=== PATIENT | female | born 1985 | race Asian ===

== ENCOUNTER 2019-09-16 14:28 | Outpatient (CLI) | payer OTHER ==
--- NOTE | 2019-09-16 15:42 | Ultrasound Report ---
PROCEDURE: OB First Trimester INDICATIONS: ,SPOTTING, HX OF ECTOPIC OUTSIDE/PRIOR DATING DATA: Last menstrual period (LMP): 07/30/2011. LMP-based estimated date of delivery (YULI): 05/05/2020. First dating scan (date and location): 09/16/2019. Estimated date of delivery (YULI) from first dating scan: 05/04/2020. TECHNIQUE: Real-time scanning was performed of the fetus and maternal pelvic organs, with image documentation. COMPARISON: None FINDINGS: Embryo: Single live intrauterine is identified with crown-rump length measuring 0.9 cm cor responds to 7 weeks 0 days. heart rate is identified at 143 bpm. Cervical length is within norm al limits. There is a small focus of subchorionic hemorrhage measuring 1.1 x 1.0 x 0.9 cm. Measurement variability in dating: +/- 4 weeks by LMP, +/- 7 days by mean sac diameter (use before 6 weeks gestation if crown-rump length not able to be measured), +/- 5 days by crown-rump length (6-12 weeks gestation). Maternal organs: Ovaries demonstrate a right corpus luteal cyst.. Limited images through the kidney s demonstrate no hydronephrosis. IMPRESSION: 1. Single live intrauterine with ultrasound gestational age of 7 weeks 0 days corresponds t o ultrasound YULI of 05/04/2020. 2. Small subchorionic hemorrhage. Reviewed by: Marcie Pruitt MD on 09/16/2019 3:41 PM PDT Approved by: Marcie Pruitt MD on 09/16/2019 3:41 PM PDT Station ID: [id number]
== END 2019-09-16 14:29 | disposition home or self-care (01) ==
LOC: DI 14:28
PROVIDERS: ATTEND Nurse Practitioner Family
DX: O26.851 Spotting complicating pregnancy, first trimester (principal); O09.11 Supervision of pregnancy with history of ectopic pregnancy, first trimester; Z3A.01 Less than 8 weeks gestation of pregnancy
CPT/HCPCS: 76801; 76817

== ENCOUNTER 2019-10-12 07:00 | Outpatient (CLI) | payer OTHER ==
[2019-10-12 16:10] LABS: BILIRUBIN,URINE NEGATIVE (NEGATIVE); GLUCOSE, URINE (UA) NEGATIVE (NEGATIVE); KETONES,URINE (UA) NEGATIVE (NEGATIVE); LEUKOCYTE ESTERASE, URINE NEGATIVE (NEGATIVE); NITRITE,URINE NEGATIVE (NEGATIVE); OCCULT BLOOD,URINE NEGATIVE (NEGATIVE); PH,URINE 6.5 PH (5.0-7.5); PROTEIN,URINE NEGATIVE (NEGATIVE); UROBILINOGEN,URINE 0.2 (NORMAL) E.U./dL (NORMAL)
[2019-10-12 16:37] LABS: BACTERIA,URINE None Seen /HPF (None Seen); CLARITY,URINE CLEAR (CLEAR); MUCUS,URINE Few Strands; RBC,URINE None Seen /HPF (0-5); SQUAMOUS EPITHELIAL CELL,UR MANY Squamous (<= Few)
== END 2019-10-12 23:59 | disposition home or self-care (01) ==
LOC: LAB.R 07:00
PROVIDERS: ATTEND Obstetrics & Gynecology
DX: Z36.89 Encounter for other specified antenatal screening (principal)
CPT/HCPCS: 81001; 87086

== ENCOUNTER 2019-10-22 13:06 | Outpatient (CLI) | payer OTHER ==
--- NOTE | 2019-10-22 16:03 | Ultrasound Report ---
PROCEDURE: OB First Trimester INDICATIONS: SUPERVISION OF ELDERLY MULTIGRAVIDA OUTSIDE/PRIOR DATING DATA: Last menstrual period (LMP): 07/30/2019. LMP-based estimated date of delivery (YULI): 05/05/2020. First dating scan (date and location): 09/16/2019. Estimated date of delivery (YULI) from first dating scan: 05/04/2020. TECHNIQUE: Real-time scanning was performed of the fetus and maternal pelvic organs, with image documentation. COMPARISON: Earlier OB ultrasound 09/16/2019 FINDINGS: See below Embryo: There is a single living intrauterine gestation with crown-rump length 6.1 cm which correlat es with a gestational age estimate of 12 weeks 4 days, +/- 5 days. heart rate of 1 58 bpm is no ash. Measurement variability in dating: +/- 4 weeks by LMP, +/- 7 days by mean sac diameter (use before 6 weeks gestation if crown-rump length not able to be measured), +/- 5 days by crown-rump length (6-12 weeks gestation). Maternal organs: Ovaries normal considering gestational status. Limited images through the kidneys demonstrate no hydronephrosis. IMPRESSION: Single living intrauterine gestation, with delivery date projected to be centered on 05/04/2020. Follo w-up anatomic survey at 20 weeks gestation is recommended. Small subchorionic hemorrhage previo usly seen is no longer identified. Reviewed by: Dominic Dimas MD on 10/22/2019 4:01 PM PDT Approved by: Dominic Dimas MD on 10/22/2019 4:01 PM PDT Station ID: [id number]
== END 2019-10-22 13:07 | disposition home or self-care (01) ==
LOC: DI 13:06
PROVIDERS: ATTEND Obstetrics & Gynecology
DX: O09.521 Supervision of elderly multigravida, first trimester (principal); Z3A.12 12 weeks gestation of pregnancy
CPT/HCPCS: 76801

== ENCOUNTER 2019-12-14 15:03 | Outpatient (CLI) | payer OTHER ==
--- NOTE | 2019-12-15 08:18 | Ultrasound Report ---
PROCEDURE: OB Detailed Eval INDICATIONS: SUPER OF ELDERLY MULTIGRAVIDA OUTSIDE/PRIOR DATING DATA: Last menstrual period (LMP): 07/30/2019. LMP-based estimated date of delivery (YULI): 05/05/2020. First dating scan (date and location): 09/16/2019. Estimated date of delivery (YULI) from first dating scan: 05/04/2020. TECHNIQUE: Real-time scanning was performed of the fetus, with image documentation and biometric measurements. Endovaginal scanning: Not needed. COMPARISON: All prior OB ultrasound studies for this . FINDINGS: General: A single living intrauterine gestation is present. Presentation: Variable at this time Placenta: Placental position is anterior, without previa. Amniotic fluid index: 20.4 cm, 93rd percentile for gestational age. heart rate: 160 beats per minute. Maternal cervical canal: 5.1 cm long; normal length is 2.5 cm or more. biometrics: Biparietal diameter: 4.9 cm, 21 weeks 0 days Head circumference: 17.8 cm, 20 weeks 2 days Abdominal circumference: 15.1 cm, 20 weeks 2 days Femur length: 3.0 cm, 19 weeks 1 day Estimated gestational age from initial scan: 19 weeks 5 days. Composite gestational age from present scan: 20 weeks 0 days Estimated weight and percentile: 316 g, 53rd percentile Measurement variability in biometric dating: +/- 10 days from 12-20 weeks gestation, +/- 2 weeks from 20-30 weeks gestation, +/- 3 weeks at 30 weeks gestation or later. Anatomic survey: Neuro: Ventricles are normal at less than 10 mm. Cisterna magna is normal at 3-11 mm. Cerebellum i s normal in size and morphology. Nuchal skin fold: Normal at less than 6 mm between 14 and 20 weeks gestational age. Face: Nose and lips, facial profile are normal. Spine: No evidence for spina bifida but quality of visualization of the spine is somewhat limi ash by positioning.. Heart: 4-chambered heart is present, with normal ventricular outflow tracts. Diaphragm: Diaphragm is intact. Stomach: Left-sided stomach is present. Kidneys: No hydronephrosis. Normal is less than 5 mm in 2nd trimester, less than 7 mm in 3rd trimester. Cord: 3 vessel cord has orthotopic insertion. Bladder: Normal in size. Extremities: All 4 extremities are visualized. IMPRESSION: Appropriate interval growth. No anomaly found. Current amniotic fluid index is at the upper 93r d percentile for current most accurate gestational age. Finally, quality of visualization of the feta l spine is somewhat limited by positioning. If clinically desired a follow-up limited OB ultras ound in 7-10 days could be obtained to attempt completion of the anatomic survey. This also cou ld further assess the amniotic fluid volume. Reviewed by: Dominic Dimas MD on 12/15/2019 8:16 AM PDT Approved by: Dominic Dimas MD on 12/15/2019 8:16 AM PDT Station ID: [id number]
== END 2019-12-14 15:04 | disposition home or self-care (01) ==
LOC: DI 15:03
PROVIDERS: ATTEND Obstetrics & Gynecology
DX: O09.529 Supervision of elderly multigravida, unspecified trimester (principal)
CPT/HCPCS: 76811

== ENCOUNTER 2019-12-22 16:13 | Outpatient (CLI) | payer OTHER | END 2019-12-22 23:59 | disposition home or self-care (01) | LOC: LAB.WCP 16:13 | PROVIDERS: ATTEND Obstetrics & Gynecology | DX: O09.529 Supervision of elderly multigravida, unspecified trimester (principal) | CPT/HCPCS: 36415; 82950 ==

== ENCOUNTER 2020-01-05 07:59 | Outpatient (CLI) | payer OTHER | END 2020-01-05 08:00 | disposition home or self-care (01) | LOC: LAB 07:59 | PROVIDERS: ATTEND Obstetrics & Gynecology | DX: O99.810 Abnormal glucose complicating pregnancy (principal) | CPT/HCPCS: 36415; 82951; 82952 ==

== ENCOUNTER 2020-01-27 14:17 | Outpatient (CLI) | payer OTHER, MEDICAID ==
--- NOTE | 2020-01-27 16:11 | Ultrasound Report ---
PROCEDURE: OB Limited INDICATIONS: ANTEPARTUM HEMORRAHAGE OUTSIDE/PRIOR DATING DATA: Last menstrual period (LMP): 07/30/2019. LMP-based estimated date of delivery (YULI): 05/05/2020. First dating scan (date and location): 09/16/2019. Estimated date of delivery (YULI) from first dating scan: 05/04/2020. TECHNIQUE: Real-time scanning was performed of the fetus, with image documentation. Endovaginal scanning: Not performed COMPARISON: OB ultrasound, 12/14/2019, 10/14/2019, 09/16/2019. FINDINGS: A single living intrauterine gestation is present. Presentation: Vertex Placenta: Placental position is anterior, without previa. Amniotic fluid index: 18.0 cm, 77% for gestational age; largest pocket 5.3 cm. heart rate: 160 beats per minutes. Maternal cervical canal: 4.4 cm long and closed; normal length is 2.5 cm or more. Estimated gestational age from initial scan: 26 weeks 0 day. IMPRESSION: 1. A single living intrauterine gestation. 2. Cervix is normal in length and closed. Reviewed by: Theresa Ramirez MD on 01/27/2020 4:09 PM PST Approved by: Theresa Ramirez MD on 01/27/2020 4:09 PM PST Station ID: [id number]
== END 2020-01-27 14:18 | disposition home or self-care (01) ==
LOC: DI 14:17
PROVIDERS: ATTEND Obstetrics & Gynecology
DX: O46.92 Antepartum hemorrhage, unspecified, second trimester (principal); Z87.51 Personal history of pre-term labor; Z3A.26 26 weeks gestation of pregnancy

== ENCOUNTER 2020-02-10 10:55 | Outpatient (CLI) | payer OTHER, MEDICAID ==
[2020-02-10 17:51] LABS: BASOPHILS # (AUTO) 0.1 10^3/uL (0.0-0.1); BASOPHILS % (AUTO) 0.8 %; EOSINOPHILS # (AUTO) 0.5 10^3/uL (0.0-0.7); EOSINOPHILS % (AUTO) 4.6 %; HGB - HEMOGLOBIN 10.1 g/dL (12.0-16.0); LYMPHOCYTES # (AUTO) 1.2 10^3/uL (1.5-3.5); LYMPHOCYTES % (AUTO) 12.4 %; MEAN CORPUSCULAR HEMOGLOBIN 27.7 pg (27.0-31.0); MEAN CORPUSCULAR VOLUME 89.6 fL (81.0-99.0); MEAN PLATELET VOLUME 9.5 fL (7.9-10.8); MONOCYTES # (AUTO) 0.4 10^3/uL (0.0-1.0); MONOCYTES % (AUTO) 4.3 %; NEUTROPHILS # (AUTO) 7.7 10^3/uL (1.5-6.6); NEUTROPHILS % (AUTO) 76.5 %; PLT - PLATELET COUNT 280 10^3/uL (130-450); RED BLOOD COUNT 3.64 10^6/uL (4.20-5.40); RED CELL DISTRIBUTION WIDTH 12.8 % (12.0-15.0)
== END 2020-02-10 10:56 | disposition home or self-care (01) ==
LOC: LAB.WCP 10:55
PROVIDERS: ATTEND Obstetrics & Gynecology
DX: O09.529 Supervision of elderly multigravida, unspecified trimester (principal); O99.810 Abnormal glucose complicating pregnancy; O09.219 Supervision of pregnancy with history of pre-term labor, unspecified trimester
CPT/HCPCS: 36415; 82950; 85025

== ENCOUNTER 2020-02-19 08:40 | Outpatient (CLI) | payer OTHER, MEDICAID ==
[2020-02-19 10:08] VITALS: BP 109/63
--- NOTE | 2020-02-19 10:46 | Ultrasound Report ---
PROCEDURE: OB Limited INDICATIONS: vaginal bleeding OUTSIDE/PRIOR DATING DATA: Last menstrual period (LMP): 07/30/2019. LMP-based estimated date of delivery (YULI): 05/05/2020. First dating scan (date and location): 09/16/2019. Estimated date of delivery (YULI) from first dating scan: 05/04/2020. TECHNIQUE: Real-time scanning was performed of the fetus, with image documentation. Endovaginal scanning: Performed for additional evaluation COMPARISON: 09/16/2019, 10/22/2019, 12/14/2019, 01/27/2020 FINDINGS: A single live intrauterine gestation is present. Presentation: Vertex Placenta: Placental position is anterior, without previa. Amniotic fluid index: 11 cm, within normal limits for gestational age. heart rate: 169 beats per minutes. Maternal cervical canal: 4.4 cm long; normal length is 2.5 cm or more. Estimated gestational age from initial scan: 29 weeks 2 days. Note is made of an apparent polyp within the cervix that measures 17 x 2 x 3 mm. Nabothian cysts are incidentally noted. IMPRESSION: Normal cervix, which is confirmed to be closed. No placenta previa. Apparent cervical polyp, which may be the cause of the patient's bleeding. Note: Concordant preliminary findings given by the journal entry audit clerk upon the completion of the examination to Dr. Hull at 10:30 AM on 02/19/2020. Reviewed by: Phong Sandoval MD on 02/19/2020 9:45 AM [place] Approved by: Phong Sandoval MD on 02/19/2020 9:45 AM [place] Station ID: [id number]
--- NOTE | 2020-02-19 11:20 | Ultrasound Report ---
PROCEDURE: OB Transvaginal INDICATIONS: vaginal bleeding OUTSIDE/PRIOR DATING DATA: Last menstrual period (LMP): 07/30/2019. LMP-based estimated date of deliv ly (YULI): 05/05/2020. First dating scan (date and location): 09/16/2019. Estimated date of delivery (E DD) from first dating scan: 05/04/2020. TECHNIQUE: Real-time scanning was performed of the fetus, wit h image documentation. Endovaginal scanning: Performed for additional evaluation COMPARISON: 09/16/19, 10/22/2019, 12/14/2019, 01/27/2020 FINDINGS: A single live intrauterine gestation is present. Pre sentation: Vertex Placenta: Placental position is anterior, without previa. Amniotic fluid index: 11 cm, within normal limits for gestational age. heart rate: 169 beats per minutes. Maternal cervi rolo canal: 4.4 cm long; normal length is 2.5 cm or more. Estimated gestational age from initial scan: 29 weeks 2 days. Note is made of an apparent polyp within the cervix that measures 17 x 2 x 3 mm. N abothian cysts are incidentally noted. IMPRESSION: Normal cervix, which is confirmed to be closed. No placenta previa. Apparent cervical polyp, which may be the cause of the patient's bleeding. N ote: Concordant preliminary findings given by the mechanical car checker upon the completion of the examination to Dr. Hull at 10:30 AM on 02/19/2020. Reviewed by: Phong Sandoval MD on 02/19/2020 10:18 AM [place] Approved by: Phong Sandoval MD on 02/19/2020 10:18 AM [place] Station ID: [id number]
--- NOTE | 2020-02-19 12:04 | PROVIDER PROGRESS NOTE ---
- HPI Chief Complaint: Vaginal bleeding Current : Current EDU 05/04/20 Gestation 29 Weeks and 2 Days 4 Para 2 Vital Signs Temperature 98.2 F 02/19/20 10:01 Heart Rate 79 02/19/20 10:01 Respiratory Rate 16 02/19/20 10:01 Blood Pressure 109/63 02/19/20 10:01 O2 Saturation 100 02/19/20 10:01 Temperature 98.2 F 02/19/20 10:01 Heart Rate 79 02/19/20 10:01 Respiratory Rate 16 02/19/20 10:01 Blood Pressure 109/63 02/19/20 10:01 O2 Saturation 100 02/19/20 10:01 - Procedures OB Procedure Performed: NST NST Procedure: START: 8:52 STOP: 9:20 am EFM 140 mod tequila 15x15 accels no decels TOCO: quiet Service Date of procedure: 02/19/20 Findings: Patient is a 34 yo at 29+1 wga here with vaginal bleeding. hx complicated by delivery at 35 weeks and second delivery at 37 wga. Patient had IC last night. Last IC prior to last night was three days prior. No change in pain or discomfort. No change in usual pattern of IC. Woke up with blood soaking sheets. Came in with pad with 3 cm [place] of red blood. No contractions. No pain. Endorse FM. No LOF other than blood. Denies dysuria or vaginal discomfort. ROS: As per HPI, otherwise remaining systems are negative GEN: NAD HEAD: NCAT EYES: No scleral icterus or conjunctival injection CV: RRR RESP: CTAB, normal effort ABD: S&NT/ND PSYCH: appropriate affect NEURO: alert and oriented, normal gait and coordination EXT: WWP VULVA: Normal external female genitalia. Normal Bartholin's, Elcho's, urethra meatus and anus. No inguinal lymphadenopathy. VAGINA: Speculum exam perfromed by RN showed riri blood in vagina. No blood was present at time of this provider's exam. Clean exam glove and clean vaginal probe cover. SVE: 1-2/long/high/posterior/medium FORMAL US: Maternal cervical length 4.4 cm Anterior placenta without previa Small polyp noted within the cervix. measured 17x2x3 mm UA GCCT Vaginitis panel pending NST: Cat I tracing A/P: 27 yo at 29+1 with post-coital bleeding Reviewed reassuring findings from us (finding of polyp was not known at time of residential counselor and was not palpable on exam) Patient is multiparous and mild cervical dilation is not unusual but given hx of late , recommend conservative management Recommend pelvic rest. Did NOT recommend bed rest Recommend avoiding strenuous activity Offered vaginal progesterone. Patient is agreement. Order submitted to [facility] Patient was offered BMZ although also reassured by CL -Patient declined Warning signs were reviewed. Instructed to return to triage with any additional bleeding Confirmed to be Rh positive Cat I tracing Vaginal studies pending Discharge to home FU in clinic or sooner with active bleeding Final DX: Vaginal bleeding in ; not labor or previa
[2020-02-19 22:09] LABS: TRICHOMONAS VAGINALIS DNA NEGATIVE (NEGATIVE)
== END 2020-02-19 11:15 | disposition home or self-care (01) ==
LOC: WFO 08:40 → FBP 08:43 → WFO 11:15
PROVIDERS: ATTEND Obstetrics & Gynecology
DX: O46.8X3 Other antepartum hemorrhage, third trimester (principal); O34.43 Maternal care for other abnormalities of cervix, third trimester; N84.1 Polyp of cervix uteri; Z3A.29 29 weeks gestation of pregnancy
CPT/HCPCS: 87491; 87591; 87661; 87797; 99214

== ENCOUNTER 2020-03-21 08:00 | Outpatient (CLI) | payer OTHER, MEDICAID ==
[2020-03-21 19:14] LABS: CANDIDA GROUP DNA NEGATIVE (NEGATIVE); CANDIDA KRUSEI DNA NEGATIVE (NEGATIVE); TRICHOMONAS VAGINALIS DNA NEGATIVE (NEGATIVE)
[2020-03-21 21:54] LABS: TRICHOMONAS VAGINALIS DNA NEGATIVE (NEGATIVE)
== END 2020-03-21 23:59 | disposition home or self-care (01) ==
LOC: LAB.R 08:00
PROVIDERS: ATTEND Obstetrics & Gynecology
DX: O60.00 Preterm labor without delivery, unspecified trimester (principal)
CPT/HCPCS: 82731; 87491; 87591; 87661; 87797; 87801

== ENCOUNTER 2020-03-21 10:40 | Observation (INO) | payer OTHER, MEDICAID ==
[2020-03-21] MEDS ORDERED: AMPICILLIN 2 GM in SODIUM CHLORIDE 0.9% MINIBAG 100 ML IV SCH (11:00)
[2020-03-21] MEDS: SODIUM CHLORIDE FLUSH 0.9% 10 ML SYRINGE IVP PRN ×3 (11:18→21:37)
[2020-03-21] MEDS: BETAMETHASONE 30 MG/5 ML VIAL IM ONE (11:19)
[2020-03-21 11:23] LABS: RUPTURE OF MEMBRANES PLUS NEGATIVE (NEGATIVE)
--- NOTE | 2020-03-21 14:28 | PREOP HISTORY & PHYSICAL ---
DATE OF SERVICE: 03/21/2020 Physician: Neptali Cruz MD IDENTIFICATION: The patient is a 34-year-old G4, P1-1-1-2, whose EDC is 05/04/2020, making her 33 weeks and 5 days. This was dated by a 7-week ultrasound. CHIEF COMPLAINT: Cramping and clear watery fluid. Cervical 3 cm, 50% effaced, -2. HISTORY OF PRESENT ILLNESS: Patient presented to the clinic for a routine OB visit. She has noted some cramping as well as some watery discharge. She was seen by Dr. Hull at which time she did a pelvic exam, which showed the cervix to be 3 cm, 50% effaced, -2. She has a history of having had a delivery at 35 weeks EGA. She also was noted to have second stages, which were 17 and 19 minutes in length. She had an ultrasound done in 01/2020, which showed her cervix to be 4.4 cm long. She had a history of bleeding at that same time. Her laboratories showed her to be B positive. She is rubella immune and she is negative for hepatitis B, RPR, as well as HIV. A 50 gram Glucola was elevated at 150, 3-hour GTT was 84/116/90/80. She is GBS positive. She has had ROM Plus done, which is noted to be negative. PAST MEDICAL HISTORY: Positive for compartment syndrome, as well as an ectopic . PAST SURGICAL HISTORY: Left salpingectomy, as well as left lower leg fasciotomy. HABITS: The patient denies use of alcohol, tobacco, street or addictive drugs. ALLERGIES: NONE KNOWN. CURRENT MEDICATIONS: vitamins, iron sulfate, famotidine, as well as 100 mg of vaginal progesterone daily, started on 02/19/2020. 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 FAMILY HISTORY: Positive for diabetes. PHYSICAL EXAM: VITAL SIGNS: Stable. HEENT: Pupils equal, round. Extraocular muscles are intact. NECK: Thyroid is not palpably enlarged. HEART: Regular rate and rhythm without murmurs. LUNGS: Lung [place] are clear without rales or wheezes. ABDOMEN: Soft, nontender, is gravid. PELVIC: Cervical examination per Dr. Hull was 3 cm, 50% effaced and -2. My exam following bed rest 2 cm, 50%, -3, posterior. LABORATORIES: Here showed a ROM Plus, which was negative and an FFN was positive. IMPRESSION: A 34-year-old G4, P2, female at 33 weeks and 5 days with cervical dilatation. She also has a positive FFN. She has a history of very rapid second stages of 17 and 19 minutes and a history of delivery at 35 weeks. PLAN: At this point, we will observe for contractions, give second dose of beta methazone and transfer her to a center with an NICU should she show changes. TD: 03/21/2020 14:14 ELVIRA
[2020-03-21] MEDS ORDERED: AMPICILLIN 1 GM in SODIUM CHLORIDE 0.9% MINIBAG 100 ML IV SCH (17:00)
[2020-03-21] MEDS ORDERED: PROGESTERONE 200 MG VG SCH (21:00)
[2020-03-21] MEDS ORDERED: PROMETRIUM 100 MG VG SCH (21:00)
[2020-03-21] MEDS: FAMOTIDINE 20 MG TABLET PO SCH (21:36)
--- NOTE | 2020-03-22 08:27 | PROVIDER PROGRESS NOTE ---
Subjective - Prog Note Date Prog Note Date: 03/22/20 Prog Note Time: 08:25 - Subjective Pt reports feeling: Improved (Pt ad a good) Objective - Vital Signs/Intake & Output Vital Signs: Vital Signs x48h Temp Pulse Resp BP Pulse Ox 03/22/20 04:30 36.8 C 83 18 96/51 L 98 Intake & Output: Intake & Output 03/19/20 03/20/20 03/21/20 03/22/20 23:59 23:59 23:59 23:59 Intake Total 100 Balance 100 - Lab Results Other Labs: Lab Results x24hrs 03/21/20 Range/Units 10:54 Membranes Rupture NEGATIVE (NEGATIVE)
--- NOTE | 2020-03-22 08:32 | PROVIDER PROGRESS NOTE ---
Subjective - Prog Note Date Prog Note Date: 03/22/20 Prog Note Time: 08:30 - Subjective Pt reports feeling: Improved (PT HAD A GOOD NIGHT LAST NIGHT. REGINO CONTRACTIONS NOTES MINIMAL CONTRACTIONS.) Objective - Vital Signs/Intake & Output Reviewed Vital Signs: Yes Vital Signs: Vital Signs x48h Temp Pulse Resp BP Pulse Ox 03/22/20 04:30 36.8 C 83 18 96/51 L 98 Intake & Output: Intake & Output 03/19/20 03/20/20 03/21/20 03/22/20 23:59 23:59 23:59 23:59 Intake Total 100 Balance 100 - Objective General Appearance: positive: No acute distress, Alert Eyes Bilateral: positive: Normal inspection, PERRL Abdomen: positive: Non-tender Comments/Other: pelvic exam Cx 2 cm/50%/-3 vertex. - Lab Results Other Labs: Lab Results x24hrs 03/21/20 Range/Units 10:54 Membranes Rupture NEGATIVE (NEGATIVE) Assessment/Plan - Problem List (1) with history of pre-term labor Impression: over night cervix has shown no new changes. She is due to receive her second dose of beta methazone. Pt's father in law lives in [facility]. consider her staying there until 36 weeks.
[2020-03-22 09:01] VITALS: BP 105/56
[2020-03-22] MEDS: FAMOTIDINE 20 MG TABLET PO SCH (10:12)
[2020-03-22] MEDS: BETAMETHASONE 30 MG/5 ML VIAL IM ONE (11:35)
--- NOTE | 2020-03-22 13:05 | Discharge Plan ---
Discharge Plan Problem Reviewed?: Yes Disposition: Home, Self Care Condition: Good Diet: Regular Activity Restrictions: Additional Comments (Pelvic rest: nothing in the vagina for 2 weeks. Avoid heavy lifting, including laundry baskets, grocery bags, vacuum cleaning, etc Consider modified bedrest; limit activities but okay to get up and move, use the bathroom, have a snack, etc. No vigorous activities like housecleaning/gardening, etc) Shower Restrictions: No Driving Restrictions: No Health Concerns: Review high concern for delivery as well as hx of precipitous delivery [place] prior to 35 1/2 to 36 weeks, highly likely that infant would be tranported to [place] after delivery Encouraged to stay with family in [place] until 36 weeks to stay close to Level III NICU No Smoking: If you smoke, Please STOP! Call for help. Follow-up with: Wandy Hull MD [Provider Admit Priv/Credential] -
[2020-03-22] MEDS ORDERED: metroNIDAZOLE 250 MG TABLET PO SCH (13:11)
--- NOTE | 2020-03-22 13:11 | PROVIDER PROGRESS NOTE ---
Subjective - Prog Note Date Prog Note Date: 03/22/20 Prog Note Time: 13:07 - Subjective Subjective: Patient has received second dose of betamethasone. No contractions, vaginal bleeding, or LOF. Has been 2 cm dialted on serial cervical exams. Vaginitis panel returned positive for BV Objective - Vital Signs/Intake & Output Reviewed Vital Signs: Yes Vital Signs: Vital Signs x48h Temp Pulse Resp BP Pulse Ox 03/22/20 09:00 98.2 F 98 16 105/56 L 97 Intake & Output: Intake & Output 03/19/20 03/20/20 03/21/20 03/22/20 23:59 23:59 23:59 23:59 Intake Total 100 Balance 100 - Objective General Appearance: positive: No acute distress Cardiovascular: positive: Regular rate & rhythm Abdomen: positive: Other (gravid, S&NT/ND) Back: positive: Nml inspection Skin: positive: Color nml Comments/Other: EFM 145 mod tequila 15x15 accels no decel TOCO: quiet Assessment/Plan - Problem List (1) labor in third trimester without delivery Impression: 34 yo at 33+6 wga with ACD with hx of PTD at 35 weeks and precipitous delivery had been 3 cm in clinic yesterday am with a positive FFN Maintained at 2 cm since yesterday afternoon until this am No contraction, no LOF, no bleeding other than some light spotting post exam ROM+ negative Vaginitis panel positive for BV Has received 2nd dose of BMZ at 11 am today PTL: Stable exam Quiet tocometry -Discharging to home on moderate bedrest -Recommend staying with family in [place] until 36 weeks, which is time of next PNV FWB: Cat I tracing, vertex, GBS positive -BMZ on 03/21 and 03/22 at 11:00 -Rec'd ampicillin x1 dose, discontinued with lack of cervical change BV: Given one dose of metronidazole in house -Sending Rx for [facility] for 7 day course Discharge instructions given RTC in 2 weeks or sooner as needed
== END 2020-03-22 13:55 | disposition home or self-care (01) ==
LOC: WFO 10:40 → FBP 10:42 → WFO 14:44 → FBP 14:45
PROVIDERS: ADMIT Obstetrics & Gynecology; ATTEND Obstetrics & Gynecology
DX: O60.03 Preterm labor without delivery, third trimester (principal); O23.593 Infection of other part of genital tract in pregnancy, third trimester; B96.89 Other specified bacterial agents as the cause of diseases classified elsewhere; O99.820 Streptococcus B carrier state complicating pregnancy; O09.213 Supervision of pregnancy with history of pre-term labor, third trimester; Z3A.33 33 weeks gestation of pregnancy
CPT/HCPCS: 84112; 96372; 99214; A9270; G0378

== ENCOUNTER 2020-04-12 23:12 | Inpatient (IN) | payer OTHER, MEDICAID ==
[2020-04-12] MEDS ORDERED: OXYTOCIN 10 UNIT/ML VIAL IM PRN (23:42)
[2020-04-12] MEDS ORDERED: LIDOCAINE-MPF 1% 30 ML VIAL ID PRN (23:42)
[2020-04-12] MEDS ORDERED: ONDANSETRON 4 MG/2 ML VIAL IVP PRN (23:42)
[2020-04-12] MEDS ORDERED: SODIUM CHLORIDE FLUSH 0.9% 10 ML SYRINGE IVP PRN (23:42)
[2020-04-12] MEDS ORDERED: CARBOPROST TROMETHAMINE 250 MCG/ML AMP IM PRN (23:42)
[2020-04-12] MEDS ORDERED: AMPICILLIN 2 GM in SODIUM CHLORIDE 0.9% MINIBAG 100 ML IV ONE (23:42)
[2020-04-12] MEDS ORDERED: miSOPROStoL 200 MCG TABLET BC PRN (23:42)
[2020-04-12] MEDS ORDERED: METHYLERGONOVINE 0.2 MG/ML VIAL IM PRN (23:42)
[2020-04-12] MEDS ORDERED: TRANEXAMIC ACID IN NACL 1,000 MG/100 ML BAG IV PRN (23:42)
[2020-04-12] MEDS ORDERED: OXYTOCIN/SODIUM CHLORIDE 500 ML IV PRN (23:42)
[2020-04-12] MEDS ORDERED: fentaNYL 100 MCG/2 ML VIAL IVP PRN (23:42)
[2020-04-12 23:51] LABS: BASOPHILS # (AUTO) 0.1 10^3/uL (0.0-0.1); BASOPHILS % (AUTO) 0.6 %; EOSINOPHILS # (AUTO) 0.4 10^3/uL (0.0-0.7); EOSINOPHILS % (AUTO) 3.4 %; HGB - HEMOGLOBIN 10.5 g/dL (12.0-16.0); LYMPHOCYTES # (AUTO) 1.9 10^3/uL (1.5-3.5); MEAN CORPUSCULAR HEMOGLOBIN 27.6 pg (27.0-31.0); MEAN CORPUSCULAR HGB CONC 32.3 g/dL (32.0-36.0); MEAN CORPUSCULAR VOLUME 85.3 fL (81.0-99.0); MEAN PLATELET VOLUME 9.2 fL (7.9-10.8); MONOCYTES # (AUTO) 0.9 10^3/uL (0.0-1.0); MONOCYTES % (AUTO) 7.3 %; NEUTROPHILS % (AUTO) 71.5 %; PLT - PLATELET COUNT 280 10^3/uL (130-450); RED BLOOD COUNT 3.81 10^6/uL (4.20-5.40); WHITE BLOOD COUNT 12.5 x10^3/uL (4.8-10.8)
[2020-04-12] MEDS: LACTATED RINGERS 1,000 ML IV SCH (23:58)
--- NOTE | 2020-04-13 01:55 | PREOP HISTORY & PHYSICAL ---
DATE OF SERVICE: 04/13/2020 Physician: Neptali Cruz MD IDENTIFICATION: The patient is a 34-year-old G5, P2, AB1, ectopic 1 female whose EDC is 05/04/2020. This makes her 37 weeks EGA. CHIEF COMPLAINT: Labor. HISTORY OF PRESENT ILLNESS: Patient developed contractions at roughly 8 o'clock. They have become progressively stronger with time. She has a history of having had short deliveries. With the first one, she pushed for 19 minutes, the second one 17 minutes. First delivery was 35 weeks, second delivery was 38 weeks. This was complicated with early dilatation of the cervix. She was treated with vaginal progesterone. She has succeeded in getting this far. She is noted to be group B strep positive. LABORATORY DATA: The patient's blood type is noted to be B positive. She is rubella immune. She is negative for RPR, hep B, HIV, GC and chlamydia. She had abnormal 50 gram Glucola, however, her 3-hour GTT was noted to be within normal limits. She is GBS positive. PAST MEDICAL HISTORY: Positive for 1. Early delivery. 2. She has a history of an ectopic . 3. 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 PAST SURGICAL HISTORY 1. Left salpingectomy. 2. Left lower extremity fasciotomy. HABITS: The patient denies use of alcohol, tobacco, street or addictive drugs. 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 FAMILY HISTORY: Positive for hypertension as well as diabetes. PHYSICAL EXAMINATION: Well-developed, well-nourished female, in no acute distress at this time. She is currently karen in an 10/03. She has been given the option to have an epidural should she show desire. HEENT: PER EOM HEART: RR LUNGS: clear ABDOMIN: gravid. nontender Her nurse exam showed her to be 5 cm. DTRs are 2+. IMPRESSION 1. A 34-year-old G5, P2, ectopic, AB 1 female at 37 weeks. 2. History of rapid deliveries. 3. Premature cervical dilatation. PLAN: The patient admitted, allowed to labor. She may receive an epidural on a p.r.n. basis. TD: 04/13/2020 01:14 [facility]
[2020-04-13] MEDS: AMPICILLIN 1 GM in SODIUM CHLORIDE 0.9% MINIBAG 100 ML IV SCH ×2 (03:55→07:48)
[2020-04-13] MEDS ORDERED: OXYTOCIN/SODIUM CHLORIDE 500 ML IV SCH (05:00)
--- NOTE | 2020-04-13 06:41 | PROVIDER PROGRESS NOTE ---
Labor Progress Note - Uterine Monitoring Uterine Monitoring Mode: positive: External toco Contraction Frequency (min/apart): 2-7 Contraction Intensity: positive: Moderate Uterine Resting Tone: positive: Soft - Monitoring Heart Rate Baseline: 130 Heart Rate Variability: positive: Moderate (6-25 bmp) Accelerations: positive: Present, 15x15 Decelerations: positive: None Strip Review: positive: Category I - Vaginal Exam Dilation (in cm): 6 Effacement (%): 80 Station: -2 Cervical Position: Midposition - Labor Progress Note Labor Progress Note/Additional Text: Progressing slowly. continue pitocin AROM when able GBS positive received 2 doses of Ampicillin
--- NOTE | 2020-04-13 08:19 | PROVIDER PROGRESS NOTE ---
Labor Progress Note - Uterine Monitoring Uterine Monitoring Mode: positive: External toco Contraction Frequency (min/apart): 2-3 Contraction Intensity: positive: Strong Uterine Resting Tone: positive: Soft - Monitoring Monitor Mode: positive: External ultrasound Heart Rate Baseline: 132 Heart Rate Variability: positive: Moderate (6-25 bmp) Accelerations: positive: Present, 15x15 Decelerations: positive: None Strip Review: positive: Category I - Vaginal Exam Dilation (in cm): 7 Effacement (%): 80% Station: -2 Cervical Position: Midposition - Labor Progress Note Labor Progress Note/Additional Text: AROMed CLEAR. AWAIT DELIVERY
[2020-04-13] MEDS: LACTATED RINGERS 1,000 ML IV SCH (08:21)
[2020-04-13] MEDS ORDERED: WITCH HAZEL/GLYCERIN 1 PAD TOP PRN (09:41)
[2020-04-13] MEDS ORDERED: diphenhydrAMINE 25 MG CAPSULE PO PRN (09:41)
[2020-04-13] MEDS ORDERED: HYDROCORTISONE 1% CREAM 28 GM TUBE PR PRN (09:41)
--- NOTE | 2020-04-13 09:51 | DELIVERY NOTE ---
Delivery Note - Labor Labor: positive: Spontaneous, Augmented by oxytocin - Delivery Method Delivery Method: positive: Spontaneous vaginal delivery - Presentation Presentation: positive: Vertex, SILVA - right occiput anterior - Nuchal Cord Nuchal Cord: positive: None - Anesthetic Anesthetic Type: - Amniotic Fluid Description Amniotic Fluid Description: positive: Clear - Episiotomy Type Episiotomy Type: positive: None - Laceration Laceration: positive: None - Delivery Outcome Delivery Outcome: positive: Livebirth - : positive: Placed in direct skin contact with mother, Bulb syringe sex: positive: Male (Apgars 9/9) - Cord Cord: positive: 3 vessels - Placenta Placenta: positive: Intact, Spontaneous - Post Delivery Events Post Delivery Events: positive: No post delivery events - Delivery Comments (Free Text/Narrative) Delivery Comments (Free Text/Narrative): Patient presented to labor and delivery at 4 cm. She was karen spo radically. She has a history of having a previously dilated cervix and was treated with progesterone vaginally. She received 2 doses of ampicillin because of her group B strep status. She was augmented with Pitocin as her contraction appears to have waned. She reached 7 cm at that point she was checked and noted to be right occiput posterior she had artificial rupture membranes at 0807 clear amniotic fluid was encountered. At that point she was karen about every 2 to 3 minutes. She was rolled to her left hand side and the infant spontaneously rotated to right occiput anterior she reached complete at 0 920 started pushing at 0 921 and following a 2-minute second stage delivered the head at 0 923 with the baby following at 0 923. The oropharynx was bulb suction the infant was pl aced on the maternal abdomen. The cord was allowed to continue to pulsate. At this point the cord was doubly clamped and the father the baby cut the cord. Her placenta followed at 0 931 was inspected and noted to be intact. She had Pitocin administered at 0 930 to decrease her blood loss. Both mother and infant tolerated delivery well. Sponge and instrument count was correct.
[2020-04-13] MEDS: IBUPROFEN 600 MG TABLET PO SCH ×3 (09:52→21:55)
[2020-04-13] MEDS ORDERED: LACTATED RINGERS 1,000 ML IV SCH (10:00)
[2020-04-13] MEDS: ACETAMINOPHEN 325 MG TABLET PO PRN ×2 (11:41→19:12)
[2020-04-13] MEDS: DOCUSATE SODIUM 100 MG CAPSULE PO SCH (20:21)
[2020-04-13] MEDS: oxyCODONE 5 MG TABLET PO PRN (20:21)
[2020-04-14] MEDS: ACETAMINOPHEN 325 MG TABLET PO PRN ×3 (00:24→12:05)
[2020-04-14] MEDS: oxyCODONE 5 MG TABLET PO PRN ×2 (01:02→12:04)
[2020-04-14] MEDS: IBUPROFEN 600 MG TABLET PO SCH ×2 (04:02→12:05)
--- NOTE | 2020-04-14 08:36 | PROVIDER PROGRESS NOTE ---
Subjective - Prog Note Date Prog Note Date: 04/14/20 Prog Note Time: 08:31 - Subjective Pt reports feeling: Improved (Pain 3/10 with breast feeding.) Objective - Vital Signs/Intake & Output Reviewed Vital Signs: Yes Vital Signs: Vital Signs x48h Temp Pulse Resp BP Pulse Ox 04/14/20 04:05 36.5 C 67 16 99/56 L 99 Intake & Output: Intake & Output 04/11/20 04/12/20 04/13/20 04/14/20 23:59 23:59 23:59 23:59 Intake Total 3610 Output Total 1200 Balance 2410 - Objective General Appearance: positive: Alert Abdomen: positive: Non-tender, Mass (u-2) Extremities: negative: Calf tenderness, Urbano's sign/cords - Lab Results Fish Bones: 04/12/20 23:37 Other Labs: Lab Results x24hrs 04/13/20 Range/Units 00:08 Coronavirus (PCR) NEGATIVE Assessment/Plan - Problem List (1) (spontaneous vaginal delivery) Impression: excellent progress Send home. reviewed breast feeding contraception Discharge medications motrin 800 Colace 200 RTC 1 week
--- NOTE | 2020-04-14 09:05 | Discharge Plan ---
Discharge Plan Problem Reviewed?: Yes Disposition: Home, Self Care Condition: Good Diet: Regular Activity Restrictions: pelvic rest 6 weeks Shower Restrictions: No Driving Restrictions: No Weight Bearing: Full Weight No Smoking: If you smoke, Please STOP! Call for help. Follow-up with: VALERIE KIMBROUGH MSN, PETROGRAPHY TEACHER [Primary Care Provider] -
--- NOTE | 2020-04-14 10:19 | DISCHARGE SUMMARY ---
Physician: Neptali Cruz MD DATE OF ADMISSION: 04/12/2020 DATE OF DISCHARGE: 04/14/2020 ADMITTING DIAGNOSES 1. A 34-year-old G5, P2 at 37 weeks 0 days. 2. Active labor. 3. History of rapid labors. 4. Premature cervical dilatation. DISCHARGE DIAGNOSES 1. A 34-year-old G5, P2 at 37 weeks 0 days. 2. Active labor. 3. History of rapid labors. 4. Premature cervical dilatation. PROCEDURES 1. Pitocin augmentation. 2. Artificial rupture of membranes. 3. Assisted vaginal delivery. PRESENTING HISTORY: The patient is a 34-year-old G5, P2 female at 37 weeks EGA. This was determined with early ultrasound. She had a history of having had rapid labors with deliveries with second sta ge of 19 and then again at 17 minutes. Her first delivery was 35 weeks. Second delivery at 38 weeks . Her was complicated with early cervical dilatation. She received vaginal progesterone f or this. Her laboratories show her to be B positive. She was group B strep positive also. HOSPITAL COURSE: The patient was admitted and since she was 4, progressing to 5 cm, she was started on ampicillin. She received 3 doses throughout her course. She was rechecked and noted to be roughl y 5-6 cm. At that point, she had Pitocin initiated and artificially ruptured of . She reached compl ete and following a 2-minute second stage, delivered a live male , Apgars 9 and 9. Her postpar jose elias course has been unremarkable. Her diet is regular. She is being well controlled on Motrin. She is at this time. We are discharging to home today. We have discussed the issues of b reastfeeding, contraception as well as infection. She is being discharged on Motrin 800 mg, Colace 2 00 mg and she is told to follow up in the clinic in one week. TD: 04/14/2020 09:01
[2020-04-14 11:55] VITALS: BP 112/62
[2020-04-14] MEDS: DOCUSATE SODIUM 100 MG CAPSULE PO SCH (12:05)
--- NOTE | 2020-04-14 14:24 | Labor Flowsheet ---
Labor Flowsheet Datetime Report Generated by CPN: 04/14/2020 14:24 Datetime: 04/14/2020 09:29 VITAL SIGNS NBP Sys/Yari/Mean (mmHg): 112 : 62 : 72 Pulse: 78 Datetime: 04/14/2020 04:05 SpO2 (%): 100 Datetime: 04/13/2020 13:49 Respirations: 18 Temperature (C): 36.6 Temperature Route: Oral PAIN Pain Scale: 1 Pain Presence: Intermittent Pain Type: Cramping Pain Location: Abdomen Pain Relief Measures: Comfort Measures Datetime: 04/13/2020 10:51 Stage of : Recovery Datetime: 04/13/2020 09:50 MEDICATIONS Pitocin (milliunits): Decreased to @ Datetime: 04/13/2020 09:45 Pain Goal: 2 Datetime: 04/13/2020 09:33 LaborFlag: Labor Datetime: 04/13/2020 09:23 UTERINE ACTIVITY Monitor Mode: Palpation Frequency (min): 2 Quality: Strong Duration (sec): 40-60 Pattern: Normal: <= 5 Contractions in 10 Minutes Resting Tone (Palpate): Relaxed ASSESSMENT A Monitor Mode: Telemetry FHR Baseline Changes: No Baseline Change Variability: Moderate 6-25 bpm Accelerations: 15X15 Decelerations: Early; Variable Category: Category II Datetime: 04/13/2020 09:21 Pushing Position: Pushing with Contractions Pushing Progress: Descent with Pushing; Perineal Bulging Datetime: 04/13/2020 09:20 VAGINAL EXAM Dilatation (cm): 10.0 Station: 2 Exam by: Giem Datetime: 04/13/2020 09:18 Pain Coping: Breathing Through Contractions; Declines Medication or Epidural Comfort Measures: Breathing/Relaxation; Coaching STAGE 2 Pushing: Urge to Push; Involuntary Pushing Datetime: 04/13/2020 09:17 Effacement (%): 100 Patient Position/Activity: Left Lateral Patient Care Comments: peanut ball removed Datetime: 04/13/2020 09:15 Vital Sign Comments: BP cuff adjusted and retaken, pt asymptomatic FHR Baseline Rate : 135 Datetime: 04/13/2020 09:07 Vaginal Bleeding: Normal Show Position 'A': Right Occipital Posterior Hygiene: Patrizia Care; Underpad Changed Datetime: 04/13/2020 09:03 COMMUNICATION Communication: Provider at Bedside Datetime: 04/13/2020 09:01 I/O Interventions: Up to BR Datetime: 04/13/2020 08:47 Membranes Ruptured Date/Time: 04/13/2020 08:06 Datetime: 04/13/2020 08:45 Membrane Comments: normal show noted to towel Datetime: 04/13/2020 08:37 Pain Assessment Comments: continues to cope well, breathing well controlled, denies needs Datetime: 04/13/2020 08:26 PATIENT CARE IV/Blood Work: New IV Bag Hung Datetime: 04/13/2020 08:07 Membrane Status: Ruptured Membranes Rupture Method: Artificial Amniotic Fluid Color: Clear Amniotic Fluid Amount: Moderate Amniotic Fluid Odor: Normal Datetime: 04/13/2020 08:02 Labor/Induction: Artificial Rupture of Membranes; Interventions Datetime: 04/13/2020 07:57 Provider Reviewed Strip: Yes Provider Notified (Name): Giem MD on unit Datetime: 04/13/2020 07:50 Antibiotics: Ampicillin IV 1 Gm Datetime: 04/13/2020 07:46 TEACHING Instructional Method: Verbal Medications: Antibiotics Datetime: 04/13/2020 07:17 MATERNAL ASSESSMENT Level of Consciousness: Alert DTR's/Clonus: DTRs 2+; No Clonus Headache: Denies Breath Sounds, Left: Clear and Equal Breath Sounds, Right: Clear and Equal Nausea/Vomiting: Denies RUQ Epigastric Pain: Denies ANESTHESIA Anesthesia Plans: None Plan of Care: Plan of Care Discussed; Vaginal Delivery Unit Routine: Call Reyes Pain Management: Pain Scale/Goals; Comfort Measures Datetime: 04/13/2020 06:07 Monitor Interventions for UA: [place] Adjusted Datetime: 04/13/2020 04:02 Pitocin Checklist: At Least 1 Acceleration of 15 bpm x 15 Seconds in 30 Minutes or Adequate Variabi lity; No More than 1 Late Deceleration Occurred in Past 30 Minutes; No More than 2 Variable Decelerat ions > 60 Seconds in Duration and decreasing >60 bpm in 30 minutes; No More than 5 Uterine Contractio ns in 10 Minutes for any 20 Minute Interval; Uterus Palpates Soft between Contractions Cervix, Consistency: Soft Cervix, Position: Anterior Datetime: 04/13/2020 00:26 Communication Comments: Dr. Cruz present on unit
== END 2020-04-14 12:00 | disposition home or self-care (01) | DRG 806 ==
LOC: WFO 23:12 → FBP 23:14 → WFO 23:41 → FBP 23:42
PROVIDERS: ADMIT Obstetrics & Gynecology; ATTEND Obstetrics & Gynecology
PROC: 10E0XZZ Delivery of Products of Conception, External Approach (ICD-10-PCS; principal; 2020-04-13)
PROC: 10907ZC Drainage of Amniotic Fluid, Therapeutic from Products of Conception, Via Natural or Artificial Opening (ICD-10-PCS; 2020-04-13)
DX: O80 Encounter for full-term uncomplicated delivery (principal); O26.873 Cervical shortening, third trimester; Z37.0 Single live birth; O99.824 Streptococcus B carrier state complicating childbirth; Z3A.37 37 weeks gestation of pregnancy; Z20.822 Contact with and (suspected) exposure to COVID-19
CPT/HCPCS: 36415; 85025; 86850; 86900; 86901; 87635; 99213; A9270; J7120

== ENCOUNTER 2020-04-28 08:00 | Outpatient (CLI) | payer OTHER, MEDICAID ==
[2020-04-28 17:20] LABS: BILIRUBIN,URINE NEGATIVE (NEGATIVE); GLUCOSE, URINE (UA) NEGATIVE (NEGATIVE); KETONES,URINE (UA) NEGATIVE (NEGATIVE); LEUKOCYTE ESTERASE, URINE TRACE (NEGATIVE); NITRITE,URINE NEGATIVE (NEGATIVE); OCCULT BLOOD,URINE LARGE (NEGATIVE); PH,URINE 5.5 PH (5.0-7.5); PROTEIN,URINE NEGATIVE (NEGATIVE); UROBILINOGEN,URINE 0.2 (NORMAL) E.U./dL (NORMAL)
[2020-04-28 17:22] LABS: CLARITY,URINE CLEAR (CLEAR)
[2020-04-28 17:43] LABS: BACTERIA,URINE Rare /HPF (None Seen); EPITHELIAL CELLS,UR RARE Renal Tubular /HPF (<= Few); SQUAMOUS EPITHELIAL CELL,UR RARE Squamous (<= Few); WBC CLUMPS,URINE PRESENT
== END 2020-04-28 23:59 | disposition home or self-care (01) ==
LOC: LAB.R 08:00
PROVIDERS: ATTEND Obstetrics & Gynecology
DX: R30.0 Dysuria (principal)
CPT/HCPCS: 81001; 87086

== ENCOUNTER 2022-02-06 08:00 | Outpatient (CLI) | payer OTHER, MEDICAID ==
[2022-02-06 22:39] LABS: BACTERIAL VAGINOSIS DNA NEGATIVE (NEGATIVE); CANDIDA GLABRATA DNA NEGATIVE (NEGATIVE); CANDIDA GROUP DNA NEGATIVE (NEGATIVE); CANDIDA KRUSEI DNA NEGATIVE (NEGATIVE); TRICHOMONAS VAGINALIS DNA NEGATIVE (NEGATIVE)
== END 2022-02-06 23:59 | disposition home or self-care (01) ==
LOC: LAB.N 08:00
PROVIDERS: ATTEND Family Medicine
DX: N89.8 Other specified noninflammatory disorders of vagina (principal); R30.0 Dysuria
CPT/HCPCS: 81514; 87086

== ENCOUNTER 2022-05-16 09:00 | Outpatient (CLI) | payer MEDICAID, OTHER | END 2022-05-16 09:15 | disposition home or self-care (01) | LOC: LAB.N 09:00 | PROVIDERS: ATTEND Registered Nurse | DX: R30.0 Dysuria (principal) | CPT/HCPCS: 87086; 87181 ==

== ENCOUNTER 2023-05-19 12:25 | Emergency (ER) | payer OTHER ==
[2023-05-19 13:02] LABS: BASOPHILS # (AUTO) 0.1 10^3/uL (0.0-0.1); BASOPHILS % (AUTO) 1.2 %; EOSINOPHILS # (AUTO) 0.6 10^3/uL (0.0-0.7); EOSINOPHILS % (AUTO) 8.8 %; HCT - HEMATOCRIT 41.6 % (37.0-47.0); HGB - HEMOGLOBIN 13.3 g/dL (12.0-16.0); LYMPHOCYTES # (AUTO) 2.2 10^3/uL (1.5-3.5); LYMPHOCYTES % (AUTO) 33.9 %; MEAN CORPUSCULAR HEMOGLOBIN 27.5 pg (27.0-31.0); MEAN PLATELET VOLUME 9.2 fL (7.9-10.8); MONOCYTES # (AUTO) 0.4 10^3/uL (0.0-1.0); MONOCYTES % (AUTO) 5.5 %; NEUTROPHILS # (AUTO) 3.3 10^3/uL (1.5-6.6); NEUTROPHILS % (AUTO) 50.3 %; PLT - PLATELET COUNT 330 10^3/uL (130-450); RED BLOOD COUNT 4.84 10^6/uL (4.20-5.40); RED CELL DISTRIBUTION WIDTH 12.4 % (12.0-15.0); WHITE BLOOD COUNT 6.6 x10^3/uL (4.8-10.8)
[2023-05-19 13:21] LABS: ALBUMIN 4.3 g/dL (3.2-5.5); ALBUMIN/GLOBULIN RATIO 1.2 (1.0-2.2); ALKALINE PHOSPHATASE 90 IU/L (42-121); ALT ALANINE AMINOTRANSFERASE 42 IU/L (10-60); AST ASPARTATE AMINOTRANSFERASE 30 IU/L (10-42); BILIRUBIN,TOTAL 0.3 mg/dL (0.2-1.0); BUN - BLOOD UREA NITROGEN 11 mg/dL (6-20); CALCIUM 9.6 mg/dL (8.5-10.3); CARBON DIOXIDE - CO2 28 mmol/L (21-32); CHLORIDE 105 mmol/L (101-111); CREATININE 0.9 mg/dL (0.6-1.3); GFR - MDRD 70 (>89); GLUCOSE 98 mg/dL (74-104); LIPASE 31 U/L (11-82); POTASSIUM 3.8 mmol/L (3.5-4.5); SODIUM 137 mmol/L (135-145); TOTAL PROTEIN 7.8 g/dL (6.4-8.9)
--- NOTE | 2023-05-19 13:37 | XRAY Report ---
PROCEDURE: Chest 1V INDICATIONS: Chest pain TECHNIQUE: One view of the chest was acquired. COMPARISON: None. FINDINGS: Surgical changes and devices: None. Lungs and pleura: No dense consolidation. No pleural effusions Mediastinum: Normal heart size Bones and chest wall: Unremarkable IMPRESSION: Limited single view radiograph without acute abnormality. Reviewed by: Albin Jay MD on 05/19/2023 1:36 PM PDT Approved by: Albin Jay MD on 05/19/2023 1:36 PM PDT Station ID: [id number]
--- NOTE | 2023-05-19 13:54 | ED Physician Documentation ---
PD HPI CHEST PAIN - Stated complaint Stated Complaint: CHEST TIGHTNESS,NAUSEA,LIGHTHEADED - Chief complaint Chief Complaint: Cardiac - History obtained from History obtained from: Patient - History of Present Illness Timing - onset: How many hours ago (about 5 hours ago), Today (around 7 am) Timing - onset during: Light activity (had gotten up from bed and was noting chest tightness and some lightheadedness.) Timing - duration: Hours Timing - details: Abrupt onset, Still present Quality: Tightness. No: Sharp, Tearing, Pain Location: Substernal Radiation: No: Jaw, Neck Associated symptoms: Shortness of air, Nausea, Feeling faint / dizzy, General Weakness. No: Vomiting, Palpitations Similar symptoms before: Has not had sx before Review of Systems Constitutional: reports: Myalgias, Fatigue (just today). denies: Fever, Chills Nose: reports: Congestion. denies: Rhinorrhea / runny nose Throat: denies: Sore throat Cardiac: reports: Chest pain / pressure (tightness) Respiratory: reports: Dyspnea. denies: Cough GI: reports: Nausea. denies: Abdominal Pain, Vomiting, Diarrhea PD PAST MEDICAL HISTORY - Past Medical History Past Medical History: No Cardiovascular: None Respiratory: None - Past Surgical History Past Surgical History: No /[employer]IE[employer]: Other - Present Medications Home Medications: Ambulatory Orders Medication Instructions Recorded Confirmed Progesterone, Micronized 200 mg PV QPM 50 Days #50 capsule 02/19/20 [Prometrium] metroNIDAZOLE [Metronidazole] 500 mg PO BID #14 tablet 03/22/20 Albuterol Sulf [Ventolin Hfa 1 - 2 puffs INH Q4HR PRN #1 each 05/19/23 Inhaler] dexAMETHasone [Decadron] 4 mg PO DAILY #5 tablet 05/19/23 - Allergies Allergies/Adverse Reactions: Allergies Allergy/AdvReac Type Severity Reaction Status Date / Time No Known Drug Allergies Allergy Verified 05/19/23 12:28 - Social History Does the pt smoke?: No Smoking Status: Never smoker Does the pt drink ETOH?: No Does the pt have substance abuse?: No - Immunizations Immunizations are current?: Yes - POLST Patient has POLST: No PD ED PE NORMAL - Vitals Vital signs reviewed: Yes - General General: Alert and oriented X 3, No acute distress, Well developed/nourished - HEENT HEENT: Moist mucous membranes, Pharynx benign - Neck Neck: Supple, no meningeal sign, No adenopathy - Cardiac Cardiac: RRR, No murmur, No rub - Respiratory Respiratory: No respiratory distress, Clear bilaterally (but does have some prolonged expiratory phase of breathing.) - Abdomen Abdomen: Soft, Non tender - Derm Derm: Normal color, Warm and dry - Extremities Extremities: No edema, No calf tenderness / cord Results - Vitals Vitals: Oxygen O2 Source Room air - EKG (time done) 12:35 EKG releavant findings:: EKG personally interpreted by author of this note. Relevant findings are: Rate: Rate (enter#) (68) Rhythm: NSR [place]: Normal Intervals: Normal MT QRS: Normal Ischemia: Normal ST segments. No: ST elevation c/w ischemia, ST depression - Labs Labs: Laboratory Tests 05/19/23 05/19/23 12:58 12:58 WBC 6.6 RBC 4.84 Hgb 13.3 Hct 41.6 MCV 86.0 MCH 27.5 MCHC 32.0 RDW 12.4 Plt Count 330 MPV 9.2 Neut # (Auto) 3.3 Lymph # (Auto) 2.2 [place] # (Auto) 0.4 Eos # (Auto) 0.6 Baso # (Auto) 0.1 Absolute Nucleated RBC 0.00 Nucleated RBC % 0.0 Sodium 137 Potassium 3.8 Chloride 105 Carbon Dioxide 28 Anion Gap 4.0 L BUN 11 Creatinine 0.9 Estimated GFR (MDRD) 70 L Glucose 98 Calcium 9.6 Total Bilirubin 0.3 AST 30 ALT 42 Alkaline Phosphatase 90 Troponin I High Sens < 2.3 L Total Protein 7.8 Albumin 4.3 Globulin 3.5 Albumin/Globulin Ratio 1.2 Lipase 31 - Rads (name of study) chest xray Relevant Findings:: Prelim report reviewed, EMP independent interpretation of test (no acute process) PD Medical Decision Making - ED course Complexity details: re-evaluated patient (given MDI albuterol to see fi helps and she did feel improved breathing with that, more c/w bronchial irritation. ), considered differential (combined feeling of fatigue, lgihtheaded and dyspnea/chest discomfort with some congestion, given low risk age, is more supportive of early viral syndrome. ECG/CXR and tropoin are done to ensure no worse process. These are nromal. ), d/w patient Departure - Departure Disposition: 01 Home, Self Care Clinical Impression: Chest tightness, Viral URI Condition: Stable Record reviewed to determine appropriate education?: Yes Instructions: ED Dyspnea Shortness of Breath Follow-Up: Sophie Segovia ARNP [Primary Care Provider] - Prescriptions: Albuterol Sulf [Ventolin Hfa Inhaler] 1 - 2 puffs INH Q4HR PRN #1 each PRN Reason: Shortness Of Air/Wheezing dexAMETHasone [Decadron] 4 mg PO DAILY #5 tablet Comments: Your EKG and chest x-ray are normal without any signs of irregular heart rhythm or heart muscle injury. The chest x-ray does not show any signs of pneumonia nor fluid buildup or collapsed lung. The blood test called troponin is well normal so no signs of heart muscle injury be at heart attack, heart failure, heart inflammation/cardiomyopathy. Blood tests are also good for blood count electrolytes and kidney function and blood sugar. No signs of anemia or kidney failure etc. It is good that you feel some improvement with the inhaler. I am inclined to think the chest discomfort and trouble breathing relate to a viral type illness concurrent with the recent sore throat and cough. I would treat this with a steroid anti-inflammatory daily for a few more days and the albuterol inhaler 2 puffs 4 times daily regularly for the next several days to week and extra times if needed. Some cough and shortness of breath can continue with some respiratory illnesses for even 2 or 3 weeks but should be decreasingly so in the first week and improved a lot with the medications. Recheck if not completely resolved over the next 2-3 weeks. I sent prescriptions to preferred pharmacy. Forms: PCP List Discharge Date/Time: 05/19/23 14:50
[2023-05-19 13:57] VITALS: O2SAT 100
[2023-05-19] MEDS: dexAMETHasone 4 MG TABLET PO STA (14:27)
[2023-05-19 14:33] LABS: TROPONIN I HIGH SENSITIVITY < 2.3 ng/L (2.3-14.8)
[2023-05-19] MEDS: ALBUTEROL 1 PUFF INH STA (14:33)
[2023-05-19 14:49] VITALS: BP 106/69
== END 2023-05-19 14:50 | disposition home or self-care (01) ==
LOC: ED 12:25
DX: J06.9 Acute upper respiratory infection, unspecified (principal); R07.89 Other chest pain; Z79.899 Other long term (current) drug therapy
CPT/HCPCS: 36415; 71045; 80053; 83690; 84484; 85025; 93005; 94640; 94664; 99283; 99284; J8540